=== PATIENT | male | born 1980 | race Caucasian/White ===

== ENCOUNTER → 2021-01-26 | Day surgery (SDC) | payer OTHER ==
[~2021-01-26] MED LIST: AMITRIPTYLINE H25 MG PO; EFFEXOR XR37.5 MG PO; MELATONIN1 MG PO; OXYCODON-ACETA1 EACH PO; WELLBUTRIN SR150 MG PO
== END | disposition home or self-care (01) ==
LOC: OR 06:47
DX: K29.80 Duodenitis without bleeding (principal); K31.9 Disease of stomach and duodenum, unspecified; K21.00 Gastro-esophageal reflux disease with esophagitis, without bleeding; K76.0 Fatty (change of) liver, not elsewhere classified; K22.10 Ulcer of esophagus without bleeding; Z20.822 Contact with and (suspected) exposure to COVID-19; F17.220 Nicotine dependence, chewing tobacco, uncomplicated
CPT/HCPCS: J2704; J7040; U0002